=== PATIENT | female | born 1955 | race Caucasian/White ===

== ENCOUNTER 2022-01-24 10:07 | Day surgery (SDC) | payer OTHER, BC ==
[2022-01-19 11:28] LABS: Absolute Lymphocytes (CBC) 2.1 K/uL (0.7-4.9); Hematocrit 40.6 % (36.0-45.0); Lymphocytes % 32.7 % (15.3-44.8); MPV 8.2 fL (7.6-11.3); RBC Red Blood Cell Count 4.47 M/uL (3.86-4.86)
[2022-01-19 11:38] LABS: Potassium 3.6 mmol/L (3.5-5.1)
--- NOTE | 2022-01-23 08:31 | EKG ---
Test Date: 2022-01-19 Test Time: 10:00:37 Hand Worker: KRISTEL MEASUREMENT RESULTS: Intervals: Rate: 74 SC: 164 QRSD: 118 QT: 418 QTc: 463 Ava: P: 60 SC: 164 QRS: 58 T: 20 INTERPRETIVE STATEMENTS: Normal sinus rhythm Low voltage QRS Right bundle branch block Abnormal ECG Compared to ECG 03/30/2006 13:19:56 Low QRS voltage now present Right bundle-branch block now present Right-axis deviation no longer present Electronically Signed On 01-23-22 08:23:45 CDT by Humberto Cota
[~2022-01-24 10:07] MED LIST: CEFAZOLIN 1 GM in NA CHLORIDE 0.9% 50 ML IVPB SCH
[2022-01-24] MEDS ORDERED: Ringers Lactate 1,000 ML IV ONE ×2 (10:30→15:23)
[2022-01-24] MEDS ORDERED: CEFAZOLIN SODIUM 1 GM/VIAL ONE (10:30)
[2022-01-24] MEDS ORDERED: NA CHLORIDE 0.9% 50 ML ONE (10:30)
[2022-01-24] MEDS ORDERED: FENTANYL CITR 100 MCG/2 ML ONE (10:42)
[2022-01-24] MEDS ORDERED: dexAMETHasone 10 MG/ML VIAL ONE ×2 (10:42→12:58)
[2022-01-24] MEDS ORDERED: LIDOCAINE 1% MPF 5 ML VIAL ONE (10:42)
[2022-01-24] MEDS ORDERED: ROPLVACAINE HCL 40 ML ONE (10:43)
[2022-01-24] MEDS ORDERED: MIDAZOLAM HCL 2 MG/2 ML INJ ONE (10:43)
[2022-01-24] MEDS ORDERED: KETOROLAC 30 MG/ML INJ ONE (12:58)
[2022-01-24] MEDS ORDERED: propofoL 200 MG/20 ML VIAL IV ONE (12:58)
[2022-01-24] MEDS ORDERED: LIDOCAINE 2% MPF 5 ML VIAL ONE (12:58)
[2022-01-24] MEDS ORDERED: ONDANSETRON 4 MG/2 ML VIAL ONE ×2 (12:59→16:20)
[2022-01-24] MEDS ORDERED: ROCURONIUM 50 MG/5 ML VIAL IV ONE (13:03)
[2022-01-24] MEDS ORDERED: EPINEPHRINE/PF 1 MG/ML AMP ONE (13:34)
[2022-01-24] MEDS ORDERED: Phenylephrine HCl 10 MG/ML 1 ML VIAL ONE (14:19)
[2022-01-24] MEDS ORDERED: NEOSTIGMINE 1 MG/ML -5 ML ONE (15:53)
[2022-01-24] MEDS ORDERED: GLYCOPYRROLATE 0.2 MG/ML SYR ONE (15:59)
[2022-01-24] MEDS ORDERED: HYDROMORPHONE HCL 1 MG/ML INJ ONE (16:47)
[2022-01-24 18:36] VITALS: BP 129/54; TEMP 97.6; O2SAT 96
--- NOTE | 2022-01-25 10:19 | OP ---
Date of Procedure: 01/24/2022 Surgeon: Demond Tripathi MD Preoperative Diagnosis: Right very large retracted rotator cuff tear. Postoperative Diagnosis: Right very large retracted rotator cuff tear with fraying of the biceps anc hor. Procedure: 1.Right arthroscopic debridement including the base of the biceps anchor as well as some synovial ti ssue. 2.Mini open subacromial decompression with repair of large rotator cuff tear, which is chronic. Estimated Blood Loss: 20 cc. Complications: No complications. Pathology Specimens: No pathology specimen sent. Indications For Operation: Ms. Day is a 66-year-old female, who unfortunately has had significant problems related to her shoulder. This was initially treated with injections as well as other conse rvative measures. Unfortunately, she failed to improve. MRI demonstrates a very large retracted rot ator cuff tear. Risks, benefits, and alternatives of different methods of treatments have been discu ssed with the patient. She states she understands things as presented. At this time, we will attemp t repair and she agrees to proceed. Description Of Procedure: The patient was taken to the operating room and placed in supine position. General anesthesia was obtained by the staff. Following this, she was then placed in the beach aleyda ir position. Right upper extremity was then prepped and draped in usual sterile fashion for arthrosc opy. Arthroscopic camera was then placed within the shoulder, found to have a very large rotator cuf f tear as well as fraying of the undersurface as well as fraying of the biceps anchor. An additional anterior portal was then made and the 3.5 shaver was then used to debride back any frayed or obvious ly unstable material. After this, the arthroscopic posterior portal was then stapled shut. The arm was then re-prepped and all gloves and equipment were changed. A standard anterior incision was then taken down carefully through skin and soft tissues. Meticulous hemostasis being maintained using [employer] electrocautery. There was significant amount of adipose tissue. The acromioclavicular joint was palpated and the deltoid was then removed from the anterior leading edge of the acromion. After thi s, a was used to protect the underlying structures and an anterior as well as standard sub acromial decompression was then performed using a saw as well as a rasp. This allowed for visualizat ion of the humeral head, which was nearly completely uncovered quite striking and the significant rot ator cuff tear. This appeared to proceed very far posteriorly and was retracted quite a bit. Use of the finger as well as other techniques to free the rotator cuff did allow for mobilization of the cu ff. Combination of mobilization of the cuff as well as placement of the suture anchors, four of whic h were used in a slightly more superior position to allow for fairly good coverage of the humeral hea d, however, far posteriorly, there did appear to be still some that is uncovered. Following this, th e wound was irrigated and the deltoid was repaired back to the acromion via bone tunnels followed by oversewn with Vicryl. The wound was again irrigated and skin was closed using Vicryl followed by sta ples. The patient was then placed in Aquacel dressing as well as a shoulder immobilizer, awakened, a nd taken to recovery room. /BRANDT Voice ID: [id number] Report ID: [id number]
== END 2022-01-24 18:09 | disposition home or self-care (01) ==
LOC: OR 10:07
PROVIDERS: ATTEND Orthopaedic Surgery
PROC: 0RNJ4ZZ Release Right Shoulder Joint, Percutaneous Endoscopic Approach (ICD-10-PCS; 2022-01-24)
PROC: 0LM14ZZ Reattachment of Right Shoulder Tendon, Percutaneous Endoscopic Approach (ICD-10-PCS; principal; 2022-01-24 12:00)
DX: M75.121 Complete rotator cuff tear or rupture of right shoulder, not specified as traumatic (principal); Z88.6 Allergy status to analgesic agent; Z20.822 Contact with and (suspected) exposure to COVID-19
CPT/HCPCS: 93005; 85025; 80048; 36415; 29827; 29826; U0002; J2704; J0171; J2370; J2250; J3010; J1100 ×2; J2795; J1170; J2710; J7120 ×2; J2405 ×2; J0690

== ENCOUNTER 2022-11-07 05:39 | Observation (INO) | payer OTHER, BC ==
[2022-11-02 08:47] LABS: Absolute Lymphocytes (CBC) 2.1 K/uL (0.7-4.9); Hematocrit 42.1 % (36.0-45.0); Lymphocytes % 32.6 % (15.3-44.8); MCV 90.1 fL (80-100); MPV 8.2 fL (7.6-11.3); RBC Red Blood Cell Count 4.68 M/uL (3.86-4.86)
--- NOTE | 2022-11-02 08:51 | RAD REPORT ---
EXAM DESCRIPTION: RAD - Chest Pa And Lat (2 Views) - 11/02/2022 8:37 am CLINICAL HISTORY: Pre op pending knee replacement COMPARISON: No comparisons FINDINGS: Lines: None. Lungs: No evidence of edema or pneumonia. Pleural: No significant pleural effusions or pneumothorax. Cardiac: The heart size is within normal limits. Mediastinum: Within normal limits. Bones: No acute fractures. Other: None IMPRESSION: No acute cardiopulmonary disease.
[2022-11-02 08:52] LABS: Protime INR 0.98
[2022-11-02 08:52] LABS: Specific Gravity 1.011 (1.005-1.030); Urine Bacteria <20 /HPF (<20); Urine Bilirubin NEGATIVE (Negative); Urine Blood 1+ (Negative); Urine Clarity Clear (Clear); Urine Color Light-Yellow (Yellow); Urine Glucose NEGATIVE (Negative); Urine Mucus 1+ /HPF (None Seen); Urine Protein TRACE (Negative); Urine Urobilinogen Normal (Normal); Urine pH 6.5 (5.0-7.0)
[2022-11-02 08:56] LABS: SARS-CoV-2 Antigen Rapid Res Negative (Negative)
[2022-11-02 09:03] LABS: Albumin 3.5 g/dL (3.4-5.0); Bilirubin Total 0.4 mg/dL (0.2-1.0); Potassium 3.9 mmol/L (3.5-5.1); Protein, Total 7.1 g/dL (6.4-8.2)
--- NOTE | 2022-11-02 17:42 | EKG ---
Test Date: 2022-11-02 Test Time: 08:23:25 Physician Credentialing Specialist: CHELSI MEASUREMENT RESULTS: Intervals: Rate: 92 NJ: 164 QRSD: 112 QT: 396 QTc: 489 [place]: P: 73 NJ: 164 QRS: 84 T: 56 INTERPRETIVE STATEMENTS: Normal sinus rhythm Low voltage QRS Incomplete right bundle branch block Borderline ECG Compared to ECG 01/19/2022 10:00:37 Incomplete right bundle-branch block now present Right bundle-branch block no longer present Electronically Signed On 11-02-22 17:41:34 LINE AND FRAME POLER by Clarence Baird
[2022-11-07] MEDS ORDERED: CEFAZOLIN SODIUM 2 GM/VIAL ONE (06:03)
[2022-11-07] MEDS ORDERED: CELECOXIB 100 MG CAPSULE ONE (06:03)
[2022-11-07] MEDS ORDERED: GABAPENTIN 100 MG CAP ONE (06:04)
[2022-11-07] MEDS ORDERED: Oxycodone HCl/Acetaminophen 1 TAB TAB ONE (06:04)
[2022-11-07] MEDS ORDERED: ACETAMINOPHEN 500 MG TAB ONE (06:05)
[2022-11-07] MEDS ORDERED: Ringers Lactate 1,000 ML IV ONE ×2 (06:05→08:37)
[2022-11-07] MEDS ORDERED: BUPIVACAINE 0.75% (PF) 2 ML SP ONE (06:26)
[2022-11-07] MEDS ORDERED: MORPHINE SULFATE/PF 1 MG/ML (10 ML AMP) ONE (06:26)
[2022-11-07] MEDS ORDERED: BUPIVACAINE 0.25% PF 10 ML VIAL ONE (06:31)
[2022-11-07] MEDS ORDERED: LIDOCAINE 2% MPF 5 ML VIAL ONE ×2 (06:31→07:16)
[2022-11-07] MEDS ORDERED: dexAMETHasone 4 MG/ML VIAL ONE (06:32)
[2022-11-07] MEDS ORDERED: FENTANYL CITR 100 MCG/2 ML ONE ×2 (06:39→08:00)
[2022-11-07] MEDS ORDERED: MIDAZOLAM HCL 2 MG/2 ML INJ ONE (06:40)
[2022-11-07] MEDS ORDERED: HYDROMORPHONE HCL 1 MG/ML INJ ONE (07:13)
[2022-11-07] MEDS ORDERED: propofoL 200 MG/20 ML VIAL IV ONE (07:16)
[2022-11-07] MEDS ORDERED: ONDANSETRON 4 MG/2 ML VIAL ONE (07:32)
[2022-11-07] MEDS ORDERED: EPHEDRINE SULF 50 MG/ML VIAL ONE (07:38)
[2022-11-07] MEDS: TRANEXAMIC ACID 1,000 MG/10 ML VIAL IV ONE ×2 (07:40→09:15)
[2022-11-07] MEDS ORDERED: KETOROLAC 30 MG/ML INJ ONE (09:22)
[2022-11-07] MEDS ORDERED: DOCUSATE NA 100 MG CAP PO PRN (09:40)
[2022-11-07] MEDS ORDERED: HYDROCODONE/APAP 7.5/325 MG TAB PO PRN (09:40)
[2022-11-07] MEDS ORDERED: ONDANSETRON 4 MG/2 ML VIAL IV PRN (09:40)
--- OUTSIDE RECORDS SUMMARY | 2022-11-07 10:39 | XMS REPORT | Continuity of Care Document ---
:1955 Author Organization [facility] t Address [address] [place] [address] Care Team Providers Name Role Phone Andrei Weinberg Attending Clinician Unavailable Payers Payer Name Policy Type Policy Number Effective Date Expiration Date [facility] Blue Cross Blue 6 [id number] 2021 [facility] Shield of [place] 00:00:00 [facility] HUMANA MEDICARE 53 [id number] 2020 2021 [facility] jahaira 00:00:00 00:00:00 [facility] MEDICARE MB [id number] 2020 [facility] NOVITAS 00:00:00 [facility] Problems Condition Condition Condition Status Onset Resolution Last Treating Co mments Source Name Details Category Date Date Treatment Clinician Date [id number] Pain, Problem Commo n [id number] joint, [facility] shoulder, - [facility] right [facility] [id number] [place] [address] osteoarthr [facility] itis of - [facility] right knee [facility] [id number] Tear of Problem Commo n right [facility] rotator - [facility] cuff[facility] unspecifie d whether traumatic [id number] Arthritis Problem Co mmon [id number] of knee, [facility] right - [facility] Arthritis Arthritis Problem Com mon of left of knee, [facility] knee left - [facility] [id number] [place], [place] [address] joint, [facility] knee, - [facility] right [facility] [id number] Pain in Problem Comm on left knee [facility] [id number] [place] [address] osteoarthr [facility] itis of - [facility] left knee [facility] [id number] Sprain of Problem Co mmon 04 right [facility] rotator - [facility] cuff [facility] [id number] Status Problem Common post right [facility] rotator - [facility] cuff [facility] [id number] Body mass Problem Com mon index [facility] [BMI] - [facility] 38.0-38.9, [facility] [id number] GERD Problem Common without [facility] esophagiti - [facility] s [facility] [id number] Sleep Problem Common apnea in [facility] adult [facility] [id number] Primary Problem Commo n osteoarthr [facility] itis - [facility] involving [facility] [id number] Hypothyroi Problem Co mmon dism [facility] (acquired) [facility] [id number] Other Problem Common obesity [facility] due to - [facility] excess [facility] [id number] Mixed Problem Common hyperlipid [facility] emia [facility] Allergies, Adverse Reactions, Alerts Allergy Allergy Status Severity Reaction(s) Onset Inactive Treating Comm ents Source Name Type Date Date Clinician 235 Drug Active Unknown Common allergy [facility] Social History Social Habit Start Date Stop Date Quantity Comments Source History of Tobacco Use Co mmon [facility] Sex Assigned At Com mon [facility] Smoking Status Start Date Stop Date Source Former Smoker 2022-10-25 00:00:00 2022-10-25 00:00:00 [facility] Medications Ordered Filled Start Stop Current Ordering Indication Dosage Frequency Signature Comments Components Source Medication Medication Date Date Medication? Clinician (SIG) Name Name Xarelto 10 Xarelto 10 2021-11 No 1{table QD Xarelto 10 MG MG 2-27 t} MG 00:00: 00 HYDROcodone HYDROcodone 2021-11 No 1{table HYDROcodon -Acetaminop -Acetaminop 2-27 t_as_ne e-Acetamin hen 7.5-325 hen 7.5-325 00:00: eded} ophen MG MG 00 7.5-325 MG Xarelto 10 Xarelto 10 2021-11 No 1{table QD Xarelto 10 MG MG 2-27 t} MG 00:00: 00 HYDROcodone HYDROcodone 2021-11 No 1{table HYDROcodon -Acetaminop -Acetaminop 2-27 t_as_ne e-Acetamin hen 7.5-325 hen 7.5-325 00:00: eded} ophen MG MG 00 7.5-325 MG HYDROcodone HYDROcodone No 1{table HYDROcodon -Acetaminop -Acetaminop 3-22 t_as_ne e-Acetamin hen 5-325 hen 5-325 00:00: eded} ophen MG MG 00 5-325 MG HYDROcodone HYDROcodone No 1{table HYDROcodon -Acetaminop -Acetaminop 3-22 t_as_ne e-Acetamin hen 5-325 hen 5-325 00:00: eded} ophen MG MG 00 5-325 MG HYDROcodone HYDROcodone No 1{table HYDROcodon -Acetaminop -Acetaminop 3-22 t_as_ne e-Acetamin hen 5-325 hen 5-325 00:00: eded} ophen MG MG 00 5-325 MG HYDROcodone HYDROcodone No 1{table HYDROcodon -Acetaminop -Acetaminop 3-22 t_as_ne e-Acetamin hen 5-325 hen 5-325 00:00: eded} ophen MG MG 00 5-325 MG HYDROcodone HYDROcodone No 1{table HYDROcodon -Acetaminop -Acetaminop 3-22 t_as_ne e-Acetamin hen 5-325 hen 5-325 00:00: eded} ophen MG MG 00 5-325 MG HYDROcodone HYDROcodone 2021- No 1{table HYDROcodon -Acetaminop -Acetaminop 3-22 t_as_ne e-Acetamin hen 5-325 hen 5-325 00:00: eded} ophen MG MG 00 5-325 MG HYDROcodone HYDROcodone 2022-0 No 1{table HYDROcodon -Acetaminop -Acetaminop 3-22 t_as_ne e-Acetamin hen 5-325 hen 5-325 00:00: eded} ophen MG MG 00 5-325 MG HYDROcodone HYDROcodone 2021-0 No 1{table HYDROcodon -Acetaminop -Acetaminop 3-22 t_as_ne e-Acetamin hen 5-325 hen 5-325 00:00: eded} ophen MG MG 00 5-325 MG HYDROcodone HYDROcodone 2021-0 No 1{table HYDROcodon -Acetaminop -Acetaminop 3-22 t_as_ne e-Acetamin hen 5-325 hen 5-325 00:00: eded} ophen MG MG 00 5-325 MG HYDROcodone HYDROcodone 2021-0 No 1{table HYDROcodon -Acetaminop -Acetaminop 3-22 t_as_ne e-Acetamin hen 5-325 hen 5-325 00:00: eded} ophen MG MG 00 5-325 MG HYDROcodone HYDROcodone 2021-0 No 1{table HYDROcodon -Acetaminop -Acetaminop 3-22 t_as_ne e-Acetamin hen 5-325 hen 5-325 00:00: eded} ophen MG MG 00 5-325 MG HYDROcodone HYDROcodone 2021-0 No 1{table HYDROcodon -Acetaminop -Acetaminop 3-22 t_as_ne e-Acetamin hen 5-325 hen 5-325 00:00: eded} ophen MG MG 00 5-325 MG HYDROcodone HYDROcodone 2021-0 No 1{table HYDROcodon -Acetaminop -Acetaminop 3-22 t_as_ne e-Acetamin hen 5-325 hen 5-325 00:00: eded} ophen MG MG 00 5-325 MG HYDROcodone HYDROcodone 2021-0 No 1{table HYDROcodon -Acetaminop -Acetaminop 3-22 t_as_ne e-Acetamin hen 5-325 hen 5-325 00:00: eded} ophen MG MG 00 5-325 MG HYDROcodone HYDROcodone 2021-0 No 1{table HYDROcodon -Acetaminop -Acetaminop 3-22 t_as_ne e-Acetamin hen 5-325 hen 5-325 00:00: eded} ophen MG MG 00 5-325 MG [facility] 2021-0 No 30mg Com 11-30 [facility] 00:00: - [facility] 2021-0 No 30mg Com 11-30 [facility] 00:00: - [facility] 2021-0 No 30mg Com 11-30 [facility] 00:00: - [facility] 2021-0 No 30mg Com 11-30 [facility] 00:00: - [facility] 2021-0 No 30mg Com 11-30 [facility] 00:00: - [facility] 2021-0 No 30mg Com 11-30 [facility] 00:00: - [facility] 2021-0 No 30mg Com 11-30 [facility] 00:00: - [facility] 2021-0 No 30mg Com 11-30 [facility] 00:00: - [facility] 2021-0 No 30mg Com 11-30 [facility] 00:00: - [facility] 2021-0 No 30mg Com 11-30 [facility] 00:00: - [facility] 2021-0 No 30mg Com 11-30 [facility] 00:00: - [facility] 2021-0 No 30mg Com 11-30 [facility] 00:00: - [facility] 2021-0 No 30mg Com 11-30 [facility] 00:00: - [facility] 2021-0 No 30mg Com 11-30 [facility] 00:00: - [facility] 2021-0 No 30mg Com 11-30 [facility] 00:00: - [facility] 2021-0 No 30mg Com 11-30 [facility] 00:00: - [facility] 2021-0 No 30mg Com 11-30 [facility] 00:00: - [facility] 2021-0 No 30mg Com 11-23 [facility] 00:00: - [facility] 2021-0 No 30mg Com 11-23 [facility] 00:00: - [facility] 2021-0 No 30mg Com 11-23 [facility] 00:00: - [facility] 2021-0 No 30mg Com 11-23 [facility] 00:00: - [facility] 2021-0 No 30mg Com 11-23 [facility] 00:00: - [facility] 2021-0 No 30mg Com 11-23 [facility] 00:00: - [facility] 2021-0 No 30mg Com 11-23 [facility] 00:00: - [facility] 2021-0 No 30mg Com 11-23 [facility] 00:00: - [facility] 2021-0 No 30mg Com 11-23 [facility] 00:00: - [facility] 2021-0 No 30mg Com 11-23 [facility] 00:00: - [facility] 2021-0 No 30mg Com 11-23 [facility] 00:00: - [facility] 2021-0 No 30mg Com 11-23 [facility] 00:00: - [facility] 2021-0 No 30mg Com 11-23 [facility] 00:00: - [facility] 2021-0 No 30mg Com 11-23 [facility] 00:00: - [facility] 2021-0 No 30mg Com 11-23 [facility] 00:00: - [facility] 2-0 No 30mg Com 11-23 [facility] 00:00: - [facility] 2021-0 No 30mg Com 11-23 [facility] 00:00: - [facility] 2-0 No 30mg Com 11-16 [facility] 00:00: - [facility] 2021-0 No 30mg Com 11-16 [facility] 00:00: - [facility] 2021-0 No 30mg Com 11-16 [facility] 00:00: - [facility] 2021-0 No 30mg Com 11-16 [facility] 00:00: - [facility] 2021-0 No 30mg Com 11-16 [facility] 00:00: - [facility] 2021-0 No 30mg Com 11-16 [facility] 00:00: - [facility] 2-0 No 30mg Com 11-16 [facility] 00:00: - [facility] 2021-0 No 30mg Com 11-16 [facility] 00:00: - [facility] 2-0 No 30mg Com 11-16 [facility] 00:00: - [facility] 2021-0 No 30mg Com 11-16 [facility] 00:00: - [facility] 2-0 No 30mg Com 11-16 [facility] 00:00: - [facility] 2021-0 No 30mg Com 11-16 [facility] 00:00: - [facility] 2021-0 No 30mg Com 11-16 [facility] 00:00: - [facility] 2021-0 No 30mg Com 11-16 [facility] 00:00: - [facility] No 30mg Com 11-16 [facility] 00:00: - [facility] No 30mg Com 11-16 [facility] 00:00: - [facility] No 30mg Com 11-16 [facility] 00:00: - [facility] 2020-11 No 30mg Com 12-28 [facility] 00:00: - [facility] 2020-11 No 30mg Com 12-28 [facility] 00:00: - [facility] 2020-11 No 30mg Com 12-28 [facility] 00:00: - [facility] 2020-11 No 30mg Com 12-28 [facility] 00:00: - [facility] 2020-11 No 30mg Com 12-28 [facility] 00:00: - [facility] 2020-11 No 30mg Com 12-28 [facility] 00:00: - [facility] 2020-11 No 30mg Com 12-28 [facility] 00:00: - [facility] 2020-11 No 30mg Com 12-28 [facility] 00:00: - [facility] 2020-11 No 30mg Com 12-28 [facility] 00:00: - [facility] 2020-11 No 30mg Com 12-28 [facility] 00:00: - [facility] 2020-11 No 30mg Com 12-28 [facility] 00:00: - [facility] 2020-11 No 30mg Com 12-28 [facility] 00:00: - [facility] 2020-11 No 30mg Com 12-28 [facility] 00:00: - [facility] 2020-11 No 30mg Com 12-28 [facility] 00:00: - [facility] 2020-11 No 30mg Com 12-28 [facility] 00:00: - [facility] 2020-11 No 30mg Com 12-28 [facility] 00:00: - [facility] 2020-11 No 30mg Com 12-28 [facility] 00:00: - [facility] 2020-11 No 30mg Com 12-21 [facility] 00:00: - [facility] 2020-11 No 30mg Com 12-21 [facility] 00:00: - [facility] 2020-11 No 30mg Com 12-21 [facility] 00:00: - [facility] 2020-11 No 30mg Com 12-21 [facility] 00:00: - [facility] 2020-11 No 30mg Com 12-21 [facility] 00:00: - [facility] 2020-11 No 30mg Com 12-21 [facility] 00:00: - [facility] 2020-11 No 30mg Com 12-21 [facility] 00:00: - [facility] 2020-11 No 30mg Com 12-21 [facility] 00:00: - [facility] 2020-11 No 30mg Com 12-21 [facility] 00:00: - [facility] 2020-11 No 30mg Com 12-21 [facility] 00:00: - [facility] 2020-11 No 30mg Com 12-21 [facility] 00:00: - [facility] 2020-11 No 30mg Com 12-21 [facility] 00:00: - [facility] 2020-11 No 30mg Com 12-21 [facility] 00:00: - [facility] 2020-11 No 30mg Com 12-21 [facility] 00:00: - [facility] 2020-11 No 30mg Com 12-21 [facility] 00:00: - [facility] 2020- No 30mg Com 12-21 [facility] 00:00: - [facility] 2020-11 No 30mg Com 12-21 [facility] 00:00: - [facility] 2020-11 No 2mL Com 12-14 [facility] 00:00: - [facility] 2020-11 No 2mL Com 12-14 [facility] 00:00: - [facility] 2020-11 No 2mL Com 12-14 [facility] 00:00: - [facility] 2020-11 No 2mL Com 12-14 [facility] 00:00: - [facility] 2020-11 No 2mL Com 12-14 [facility] 00:00: - [facility] 2020-11 No 2mL Com 12-14 [facility] 00:00: - [facility] 2020- No 2mL Com 12-14 [facility] 00:00: - [facility] 2020- No 2mL Com 12-14 [facility] 00:00: - [facility] 2020- No 2mL Com 12-14 [facility] 00:00: - [facility] 2020- No 2mL Com 12-14 [facility] 00:00: - [facility] 2020- No 2mL Com 12-14 [facility] 00:00: - [facility] 2020-1 No 2mL Com 12-14 [facility] 00:00: - [facility] 2020-11 No 2mL Com 12-14 [facility] 00:00: - [facility] 2020- No 2mL Com 12-14 [facility] 00:00: - [facility] 2020-11 No 2mL Com 12-14 [facility] 00:00: - [facility] 2020- No 2mL Com 12-14 [facility] 00:00: - [facility] 2020-11 No 2mL Com 12-14 [facility] 00:00: - [facility] 00 [facility] Levothyroxi Levothyroxi No QD Levothyrox ne Sodium ne Sodium ine Sodium 50 MCG 50 MCG 50 MCG Levothyroxi Levothyroxi No QD Levothyrox ne Sodium ne Sodium ine Sodium 50 MCG 50 MCG 50 MCG Levothyroxi Levothyroxi No QD ne Sodium ne Sodium 50 MCG 50 MCG Levothyroxi Levothyroxi No QD ne Sodium ne Sodium 50 MCG 50 MCG Levothyroxi Levothyroxi No QD Levothyrox ne Sodium ne Sodium ine Sodium 50 MCG 50 MCG 50 MCG Levothyroxi Levothyroxi No QD Levothyrox ne Sodium ne Sodium ine Sodium 50 MCG 50 MCG 50 MCG Levothyroxi Levothyroxi No QD Levothyrox ne Sodium ne Sodium ine Sodium 50 MCG 50 MCG 50 MCG Levothyroxi Levothyroxi No QD Levothyrox ne Sodium ne Sodium ine Sodium 50 MCG 50 MCG 50 MCG Levothyroxi Levothyroxi No QD Levothyrox ne Sodium ne Sodium ine Sodium 50 MCG 50 MCG 50 MCG Levothyroxi Levothyroxi No QD Levothyrox ne Sodium ne Sodium ine Sodium 50 MCG 50 MCG 50 MCG Levothyroxi Levothyroxi No QD Levothyrox ne Sodium ne Sodium ine Sodium 50 MCG 50 MCG 50 MCG Levothyroxi Levothyroxi No QD Levothyrox ne Sodium ne Sodium ine Sodium 50 MCG 50 MCG 50 MCG Levothyroxi Levothyroxi No QD Levothyrox ne Sodium ne Sodium ine Sodium 50 MCG 50 MCG 50 MCG Levothyroxi Levothyroxi No QD Levothyrox ne Sodium ne Sodium ine Sodium 50 MCG 50 MCG 50 MCG Levothyroxi Levothyroxi No QD Levothyrox ne Sodium ne Sodium ine Sodium 50 MCG 50 MCG 50 MCG Levothyroxi Levothyroxi No QD Levothyrox ne Sodium ne Sodium ine Sodium 50 MCG 50 MCG 50 MCG Levothyroxi Levothyroxi No QD Levothyrox ne Sodium ne Sodium ine Sodium 50 MCG 50 MCG 50 MCG Levothyroxi Levothyroxi No QD Levothyrox ne Sodium ne Sodium ine Sodium 50 MCG 50 MCG 50 MCG Levothyroxi Levothyroxi No QD Levothyrox ne Sodium ne Sodium ine Sodium 50 MCG 50 MCG 50 MCG Levothyroxi Levothyroxi No QD Levothyrox ne Sodium ne Sodium ine Sodium 50 MCG 50 MCG 50 MCG Levothyroxi Levothyroxi No QD Levothyrox ne Sodium ne Sodium ine Sodium 50 MCG 50 MCG 50 MCG Levothyroxi Levothyroxi No QD Levothyrox ne Sodium ne Sodium ine Sodium 50 MCG 50 MCG 50 MCG Levothyroxi Levothyroxi No Levothyrox ne Sodium ne Sodium ine Sodium 50 MCG 50 MCG 50 MCG Levothyroxi Levothyroxi No Levothyrox ne Sodium ne Sodium ine Sodium 50 MCG 50 MCG 50 MCG Levothyroxi Levothyroxi No Levothyrox ne Sodium ne Sodium ine Sodium 50 MCG 50 MCG 50 MCG Levothyroxi Levothyroxi No Levothyrox ne Sodium ne Sodium ine Sodium 50 MCG 50 MCG 50 MCG Levothyroxi Levothyroxi No Levothyrox ne Sodium ne Sodium ine Sodium 50 MCG 50 MCG 50 MCG Levothyroxi Levothyroxi No Levothyrox ne Sodium ne Sodium ine Sodium 50 MCG 50 MCG 50 MCG Immunizations Ordered Immunization Filled Immunization Date Status Commen ts Source Name Name Prevnar 13 (PCV13) Prevnar 13 (PCV13) 2020-08-18 Completed [facility] 11:46:00 - [facility] Prevnar 13 (PCV13) Prevnar 13 (PCV13) 2020-08-18 Completed [facility] 11:46:00 - [facility] Prevnar 13 (PCV13) Prevnar 13 (PCV13) 2020-08-18 Completed [facility] 11:46:00 - [facility] Prevnar 13 (PCV13) Prevnar 13 (PCV13) 2020-08-18 Completed [facility] 11:46:00 - [facility] Prevnar 13 (PCV13) Prevnar 13 (PCV13) 2020-08-18 Completed [facility] 11:46:00 - [facility] Prevnar 13 (PCV13) Prevnar 13 (PCV13) 2020-08-18 Completed [facility] 11:46:00 - [facility] Prevnar 13 (PCV13) Prevnar 13 (PCV13) 2020-08-18 Completed [facility] 11:46:00 - [facility] Prevnar 13 (PCV13) Prevnar 13 (PCV13) 2020-08-18 Completed [facility] 11:46:00 - [facility] Prevnar 13 (PCV13) Prevnar 13 (PCV13) 2020-08-18 Completed [facility] 11:46:00 - [facility] Prevnar 13 (PCV13) Prevnar 13 (PCV13) 2020-08-18 Completed [facility] 11:46:00 - [facility] Prevnar 13 (PCV13) Prevnar 13 (PCV13) 2020-08-18 Completed [facility] 11:46:00 - [facility] Prevnar 13 (PCV13) Prevnar 13 (PCV13) 2020-08-18 Completed [facility] 11:46:00 - [facility] Prevnar 13 (PCV13) Prevnar 13 (PCV13) 2020-08-18 Completed [facility] 11:46:00 - [facility] Prevnar 13 (PCV13) Prevnar 13 (PCV13) 2020-08-18 Completed [facility] 11:46:00 - [facility] Prevnar 13 (PCV13) Prevnar 13 (PCV13) 2020-08-18 Completed [facility] 11:46:00 - [facility] Prevnar 13 (PCV13) Prevnar 13 (PCV13) 2020-08-18 Completed [facility] 11:46:00 [facility] Prevnar 13 (PCV13) Prevnar 13 (PCV13) 2020-08-18 Completed [facility] 11:46:00 [facility] Prevnar 13 (PCV13) Prevnar 13 (PCV13) 2020-08-18 Completed [facility] 11:46:00 - [facility] Prevnar 13 (PCV13) Prevnar 13 (PCV13) 2020-08-18 Completed [facility] 11:46:00 - [facility] Prevnar 13 (PCV13) Prevnar 13 (PCV13) 2020-08-18 Completed [facility] 11:46:00 [facility] Prevnar 13 (PCV13) Prevnar 13 (PCV13) 2020-08-18 Completed [facility] 11:46:00 [facility] Prevnar 13 (PCV13) Prevnar 13 (PCV13) 2020-08-18 Completed [facility] 11:46:00 [facility] Prevnar 13 (PCV13) Prevnar 13 (PCV13) 2020-08-18 Completed [facility] 11:46:00 [facility] Prevnar 13 (PCV13) Prevnar 13 (PCV13) 2020-08-18 Completed [facility] 11:46:00 [facility] Prevnar 13 (PCV13) Prevnar 13 (PCV13) 2020-08-18 Completed [facility] 11:46:00 - [facility] Prevnar 13 (PCV13) Prevnar 13 (PCV13) 2020-08-18 Completed [facility] 11:46:00 - [facility] Prevnar 13 (PCV13) Prevnar 13 (PCV13) 2020-08-18 Completed [facility] 11:46:00 [facility] Prevnar 13 (PCV13) Prevnar 13 (PCV13) 2020-08-18 Completed [facility] 11:46:00 [facility] Pneumovax (PPSV23) Pneumovax (PPSV23) 2020-08-12 Completed [facility] 11:46:00 [facility] Pneumovax (PPSV23) Pneumovax (PPSV23) 2020-08-12 Completed [facility] 11:46:00 [facility] Pneumovax (PPSV23) Pneumovax (PPSV23) 2020-08-12 Completed [facility] 11:46:00 [facility] Pneumovax (PPSV23) Pneumovax (PPSV23) 2020-08-12 Completed [facility] 11:46:00 [facility] Pneumovax (PPSV23) Pneumovax (PPSV23) 2020-08-12 Completed [facility] 11:46:00 [facility] Pneumovax (PPSV23) Pneumovax (PPSV23) 2020-08-12 Completed [facility] 11:46:00 [facility] Pneumovax (PPSV23) Pneumovax (PPSV23) 2020-08-12 Completed [facility] 11:46:00 [facility] Pneumovax (PPSV23) Pneumovax (PPSV23) 2020-08-12 Completed [facility] 11:46:00 [facility] Pneumovax (PPSV23) Pneumovax (PPSV23) 2020-08-12 Completed [facility] 11:46:00 [facility] Pneumovax (PPSV23) Pneumovax (PPSV23) 2020-08-12 Completed [facility] 11:46:00 [facility] Pneumovax (PPSV23) Pneumovax (PPSV23) 2020-08-12 Completed [facility] 11:46:00 [facility] Pneumovax (PPSV23) Pneumovax (PPSV23) 2020-08-12 Completed [facility] 11:46:00 [facility] Pneumovax (PPSV23) Pneumovax (PPSV23) 2020-08-12 Completed [facility] 11:46:00 [facility] Pneumovax (PPSV23) Pneumovax (PPSV23) 2020-08-12 Completed [facility] 11:46:00 [facility] Pneumovax (PPSV23) Pneumovax (PPSV23) 2020-08-12 Completed [facility] 11:46:00 [facility] Pneumovax (PPSV23) Pneumovax (PPSV23) 2020-08-12 Completed [facility] 11:46:00 [facility] Pneumovax (PPSV23) Pneumovax (PPSV23) 2020-08-12 Completed [facility] 11:46:00 [facility] Pneumovax (PPSV23) Pneumovax (PPSV23) 2020-08-12 Completed [facility] 11:46:00 [facility] Pneumovax (PPSV23) Pneumovax (PPSV23) 2020-08-12 Completed [facility] 11:46:00 [facility] Pneumovax (PPSV23) Pneumovax (PPSV23) 2020-08-12 Completed [facility] 11:46:00 [facility] Pneumovax (PPSV23) Pneumovax (PPSV23) 2020-08-12 Completed [facility] 11:46:00 [facility] Pneumovax (PPSV23) Pneumovax (PPSV23) 2020-08-12 Completed [facility] 11:46:00 [facility] Pneumovax (PPSV23) Pneumovax (PPSV23) 2020-08-12 Completed [facility] 11:46:00 [facility] Pneumovax (PPSV23) Pneumovax (PPSV23) 2020-08-12 Completed [facility] 11:46:00 [facility] Pneumovax (PPSV23) Pneumovax (PPSV23) 2020-08-12 Completed [facility] 11:46:00 [facility] Pneumovax (PPSV23) Pneumovax (PPSV23) 2020-08-12 Completed [facility] 11:46:00 [facility] Pneumovax (PPSV23) Pneumovax (PPSV23) 2020-08-12 Completed [facility] 11:46:00 [facility] Pneumovax (PPSV23) Pneumovax (PPSV23) 2020-08-12 [facility]pleted [facility]:00 [facility] Adacel (Tdap) Adacel (Tdap) 2020-08-10 [facility]pleted [facility]00 [facility] Adacel (Tdap) Adacel (Tdap) 2020-08-10 Completed [facility]00 [facility] Adacel (Tdap) Adacel (Tdap) 2020-08-10 Completed [facility] 11:47[facility]00 [facility] Adacel (Tdap) Adacel (Tdap) 2020-08-10 Completed [facility]00 [facility] Adacel (Tdap) Adacel (Tdap) 2020-08-10 Completed [facility]:47[facility]00 [facility] Adacel (Tdap) Adacel (Tdap) 2020-08-10 Completed [facility] 11:47:00 - [facility] Adacel (Tdap) Adacel (Tdap) 2020-08-10 Completed [facility] 11:47:00 - [facility] Adacel (Tdap) Adacel (Tdap) 2020-08-10 Completed [facility] 11:47[facility]00 [facility] Adacel (Tdap) Adacel (Tdap) 2020-08-10 Completed [facility] 11:47:00 - [facility] Adacel (Tdap) Adacel (Tdap) 2020-08-10 Completed [facility]00 [facility] Adacel (Tdap) Adacel (Tdap) 2020-08-10 Completed [facility] 11:47:00 - [facility] Adacel (Tdap) Adacel (Tdap) 2020-08-10 Completed [facility] 11:47:00 - [facility] Adacel (Tdap) Adacel (Tdap) 2020-08-10 Completed [facility] 11:47:00 - [facility] Adacel (Tdap) Adacel (Tdap) 2020-08-10 Completed [facility]00 [facility] Adacel (Tdap) Adacel (Tdap) 2020-08-10 Completed [facility]:47[facility]00 [facility] Adacel (Tdap) Adacel (Tdap) 2020-08-10 Completed [facility]:47[facility]00 [facility] Adacel (Tdap) Adacel (Tdap) 2020-08-10 Completed [facility]:47[facility]00 [facility] Adacel (Tdap) Adacel (Tdap) 2020-08-10 Completed [facility]00 [facility] Adacel (Tdap) Adacel (Tdap) 2020-08-10 Completed [facility]:47[facility]00 [facility] Adacel (Tdap) Adacel (Tdap) 2020-08-10 Completed [facility] 11:47:00 - [facility] Adacel (Tdap) Adacel (Tdap) 2020-08-10 Completed [facility] 11:47:00 - [facility] Adacel (Tdap) Adacel (Tdap) 2020-08-10 Completed [facility] 11:47:00 - [facility] Adacel (Tdap) Adacel (Tdap) 2020-08-10 Completed [facility] 11:47:00 - [facility] Adacel (Tdap) Adacel (Tdap) 2020-08-10 Completed [facility] 11:47:00 - [facility] Adacel (Tdap) Adacel (Tdap) 2020-08-10 Completed [facility] 11:47:00 - [facility] Adacel (Tdap) Adacel (Tdap) 2020-08-10 Completed [facility] 11:47:00 - [facility] Adacel (Tdap) Adacel (Tdap) 2020-08-10 Completed [facility] 11:47:00 - [facility] Adacel (Tdap) Adacel (Tdap) 2020-08-10 Completed [facility] 11:47:00 - [facility] FluAD FluAD 2020-08-10 Completed [facility] 11:46:00 - [facility] FluAD FluAD 2020-08-10 Completed [facility] 11:46:00 - [facility] FluAD FluAD 2020-08-10 Completed [facility] 11:46:00 - [facility] FluAD FluAD 2020-08-10 Completed [facility] 11:46:00 [facility] FluAD FluAD 2020-08-10 Completed [facility] 11:46:00 - [facility] FluAD FluAD 2020-08-10 Completed [facility] 11:46:00 - [facility] FluAD FluAD 2020-08-10 Completed [facility] 11:46:00 - [facility] FluAD FluAD 2020-08-10 Completed [facility] 11:46:00 - [facility] FluAD FluAD 2020-08-10 Completed [facility] 11:46:00 - [facility] FluAD FluAD 2020-08-10 Completed [facility] 11:46:00 - [facility] FluAD FluAD 2020-08-10 Completed [facility] 11:46:00 - [facility] FluAD FluAD 2020-08-10 Completed [facility] 11:46:00 - [facility] FluAD FluAD 2020-08-10 Completed [facility] 11:46:00 - [facility] FluAD FluAD 2020-08-10 Completed [facility] 11:46:00 - [facility] FluAD FluAD 2020-08-10 Completed [facility] 11:46:00 - [facility] FluAD FluAD 2020-08-10 Completed [facility] 11:46:00 - [facility] FluAD FluAD 2020-08-10 Completed [facility] 11:46:00 - [facility] FluAD FluAD 2020-08-10 Completed [facility] 11:46:00 - [facility] FluAD FluAD 2020-08-10 Completed [facility] 11:46:00 - [facility] FluAD FluAD 2020-08-10 Completed [facility] 11:46:00 - [facility] FluAD FluAD 2020-08-10 Completed [facility] 11:46:00 - [facility] FluAD FluAD 2020-08-10 Completed [facility] 11:46:00 - [facility] FluAD FluAD 2020-08-10 Completed [facility] 11:46:00 - [facility] FluAD FluAD 2020-08-10 Completed [facility] 11:46:00 - [facility] FluAD FluAD 2020-08-10 Completed [facility] 11:46:00 - [facility] FluAD FluAD 2020-08-10 Completed [facility] 11:46:00 - [facility] FluAD FluAD 2020-08-10 Completed [facility] 11:46:00 - [facility] FluAD FluAD 2020-08-10 Completed [facility] 11:46:00 - [facility] Vital Signs Vital Name Observation Time Observation Value Comments Source height 2022-10-25 11:00:00 64 [in_i] [facility] weight 2022-10-25 11:00:00 230 [lb_av] [facility] temperature 2022-10-25 11:00:00 97.0 [degF] [facility] - [facility] bmi 2022-10-25 11:00:00 39.48 kg/m2 [facility] blood pressure 2022-10-25 11:00:00 132 mm[Hg] [facility] - systolic [facility] blood pressure 2022-10-25 11:00:00 80 mm[Hg] [facility] - diastolic [facility] height 2022-09-07 09:30:00 64 [in_i] [facility] weight 2022-09-07 09:30:00 230 [lb_av] [facility] temperature 2022-09-07 09:30:00 96.9 [degF] [facility] - [facility] bmi 2022-09-07 09:30:00 39.48 kg/m2 [facility] - [facility] blood pressure 2022-09-07 09:30:00 130 mm[Hg] [facility] - systolic [facility] blood pressure 2022-09-07 09:30:00 68 mm[Hg] [facility] - diastolic [facility] height 2022-07-26 09:45:00 64 [in_i] [facility] - [facility] weight 2022-07-26 09:45:00 229 [lb_av] [facility] - [facility] temperature 2022-07-26 09:45:00 97.2 [degF] [facility] - [facility] bmi 2022-07-26 09:45:00 39.3 kg/m2 [facility] blood pressure 2022-07-26 09:45:00 132 mm[Hg] [facility] - systolic [facility] blood pressure 2022-07-26 09:45:00 70 mm[Hg] [facility] - diastolic [facility] height 2022-05-11 13:50:00 64 [in_i] [facility] weight 2022-05-11 13:50:00 229.7 [lb_av] [facility] temperature 2022-05-11 13:50:00 98.2 [degF] [facility] bmi 2022-05-11 13:50:00 39.42 kg/m2 [facility] oximetry 2022-05-11 13:50:00 93 % [facility] respiratory rate 2022-05-11 13:50:00 16 /min [facility] blood pressure 2022-05-11 13:50:00 129 mm[Hg] [facility] - systolic [facility] blood pressure 2022-05-11 13:50:00 68 mm[Hg] [facility] - diastolic [facility] height 2022-05-11 14:00:00 64 [in_i] [facility] weight 2022-05-11 14:00:00 229.7 [lb_av] [facility] temperature 2022-05-11 14:00:00 98.2 [degF] [facility] bmi 2022-05-11 14:00:00 39.42 kg/m2 [facility] oximetry 2022-05-11 14:00:00 93 % [facility] respiratory rate 2022-05-11 14:00:00 16 /min [facility] blood pressure 2022-05-11 14:00:00 129 mm[Hg] [facility] - systolic [facility] blood pressure 2022-05-11 14:00:00 68 mm[Hg] [facility] - diastolic [facility] height 2022-04-26 09:00:00 64 [in_i] [facility] weight 2022-04-26 09:00:00 236 [lb_av] [facility] bmi 2022-04-26 09:00:00 40.5 kg/m2 [facility] blood pressure 2022-04-26 09:00:00 132 mm[Hg] [facility] - systolic [facility] blood pressure 2022-04-26 09:00:00 79 mm[Hg] [facility] - diastolic [facility] height 2022-03-08 09:30:00 64 [in_i] [facility] weight 2022-03-08 09:30:00 237 [lb_av] [facility] - [facility] bmi 2022-03-08 09:30:00 40.68 kg/m2 [facility] blood pressure 2022-03-08 09:30:00 130 mm[Hg] [facility] - systolic [facility] blood pressure 2022-03-08 09:30:00 78 mm[Hg] [facility] - diastolic [facility] height 2022-02-22 10:00:00 64 [in_i] [facility] weight 2022-02-22 10:00:00 237 [lb_av] [facility] - [facility] bmi 2022-02-22 10:00:00 40.68 kg/m2 [facility] - [facility] blood pressure 2022-02-22 10:00:00 130 mm[Hg] [facility] - systolic [facility] blood pressure 2022-02-22 10:00:00 78 mm[Hg] [facility] - diastolic [facility] height 2022-02-08 09:00:00 64 [in_i] [facility] weight 2022-02-08 09:00:00 237 [lb_av] [facility] - [facility] bmi 2022-02-08 09:00:00 40.68 kg/m2 [facility] blood pressure 2022-02-08 09:00:00 130 mm[Hg] [facility] - systolic [facility] blood pressure 2022-02-08 09:00:00 80 mm[Hg] [facility] - diastolic [facility] height 2022-01-26 11:00:00 64 [in_i] [facility] weight 2022-01-26 11:00:00 237 [lb_av] [facility] - [facility] bmi 2022-01-26 11:00:00 40.68 kg/m2 [facility] blood pressure 2022-01-26 11:00:00 130 mm[Hg] [facility] - systolic [facility] blood pressure 2022-01-26 11:00:00 80 mm[Hg] [facility] - diastolic [facility] height 2021-12-30 08:45:00 64 [in_i] [facility] weight 2021-12-30 08:45:00 237 [lb_av] [facility] bmi 2021-12-30 08:45:00 40.68 kg/m2 [facility] - [facility] blood pressure 2021-12-30 08:45:00 132 mm[Hg] [facility] - systolic [facility] blood pressure 2021-12-30 08:45:00 78 mm[Hg] [facility] - diastolic [facility] height 2021-11-30 10:40:00 64 [in_i] [facility] weight 2021-11-30 10:40:00 237 [lb_av] [facility] - [facility] bmi 2021-11-30 10:40:00 40.68 kg/m2 [facility] - [facility] blood pressure 2021-11-30 10:40:00 130 mm[Hg] [facility] - systolic [facility] blood pressure 2021-11-30 10:40:00 80 mm[Hg] [facility] - diastolic [facility] height 2021-11-23 10:00:00 64 [in_i] [facility] - [facility] weight 2021-11-23 10:00:00 237 [lb_av] [facility] - [facility] bmi 2021-11-23 10:00:00 40.68 kg/m2 [facility] blood pressure 2021-11-23 10:00:00 132 mm[Hg] [facility] - systolic [facility] blood pressure 2021-11-23 10:00:00 82 mm[Hg] [facility] - diastolic [facility] height 2021-11-16 14:45:00 64 [in_i] [facility] weight 2021-11-16 14:45:00 236 [lb_av] [facility] bmi 2021-11-16 14:45:00 40.5 kg/m2 [facility] blood pressure 2021-11-16 14:45:00 130 mm[Hg] [facility] - systolic [facility] blood pressure 2021-11-16 14:45:00 80 mm[Hg] [facility] - diastolic [facility] height 2021-11-14 09:45:00 64 [in_i] [facility] - [facility] weight 2021-11-14 09:45:00 236 [lb_av] [facility] - [facility] bmi 2021-11-14 09:45:00 40.5 kg/m2 [facility] blood pressure 2021-11-14 09:45:00 138 mm[Hg] [facility] - systolic [facility] blood pressure 2021-11-14 09:45:00 82 mm[Hg] [facility] - diastolic [facility] height 2021-10-27 09:30:00 64 [in_i] [facility] weight 2021-10-27 09:30:00 235 [lb_av] [facility] - [facility] bmi 2021-10-27 09:30:00 40.33 kg/m2 [facility] blood pressure 2021-10-27 09:30:00 136 mm[Hg] [facility] - systolic [facility] blood pressure 2021-10-27 09:30:00 80 mm[Hg] [facility] - diastolic [facility] height 2021-10-20 15:50:00 64 [in_i] [facility] weight 2021-10-20 15:50:00 233 [lb_av] [facility] - [facility] bmi 2021-10-20 15:50:00 39.99 kg/m2 [facility] blood pressure 2021-10-20 15:50:00 135 mm[Hg] [facility] - systolic [facility] blood pressure 2021-10-20 15:50:00 78 mm[Hg] [facility] - diastolic [facility] height 2021-10-13 09:00:00 64 [in_i] [facility] weight 2021-10-13 09:00:00 233.7 [lb_av] [facility] bmi 2021-10-13 09:00:00 40.11 kg/m2 [facility] - [facility] blood pressure 2021-10-13 09:00:00 135 mm[Hg] [facility] - systolic [facility] blood pressure 2021-10-13 09:00:00 94 mm[Hg] [facility] - diastolic [facility] Procedures This patient has no known procedures. Encounters Start End Encounter Admission Attending Care Care Encounter Source Date/Time Date/Time Type Type Clinicians Facility Department ID 2022-07-26 Outpatient Weinberg, STLMLC STLC [id number] [facility] 09:46:02 [facility] 2022-07-25 Outpatient Weinberg, STLMLC STLC [id number] Common 14:05:01 [facility] 2022-05-10 Outpatient Weinberg, STLMLC STLC [id number] Common 16:04:01 [facility] 2022-04-26 Outpatient Weinberg, STLMLC STLC [id number] Common 08:43:02 [facility] 2022-03-08 Outpatient Weinberg, STLMLC STLC [id number] Common 14:00:02 [facility] 2022-02-03 Outpatient Weinberg, STLMLC STLMLC [id number] Common 12:31:01 [facility] 2021-12-29 Outpatient Weinberg, STLMLC STLMLC [id number] Common 09:05:02 [facility] 2021-11-30 Outpatient Weinberg, STLMLC STLMLC [id number] Common 14:36:53 [facility] 2021-11-30 Outpatient Weinberg, STLMLC STLMLC [id number] Common 14:28:07 [facility] 2021-11-30 Outpatient Weinberg, STLMLC STLMLC [id number] Common 14:27:44 [facility] 2021-11-30 Outpatient Weinberg, STLMLC STLMLC [id number] Common 14:22:48 Andrei [id number] [facility] 2021-11-30 Outpatient Weinberg, STLMLC STLMLC [id number] Common 14:03:30 Andrei [id number] [facility] 2021-11-30 Outpatient Weinberg, STLMLC STLMLC [id number] Common 12:58:57 Andrei [id number] [facility] 2021-11-30 Outpatient Weinberg, STLMLC STLMLC [id number] Common 12:57:36 Andrei [id number] [facility] 2021-11-30 Outpatient STLMLC STLMLC [id number] Common 12:50:16 [id number] [facility] 2022-11-03 2022-11-03 (TEL) STLMLC STLMLC [id number] Co mmon 00:00:00 00:00:00 [facility] 2022-10-25 2022-10-25 OFFICE STLMLC STLMLC [id number] Co mmon 00:00:00 00:00:00 VISIT EST Spir it PT LEVEL 3 [facility] 2022-09-08 2022-09-08 (TEL) STLMLC STLMLC [id number] Co mmon 00:00:00 00:00:00 [facility] 2022-09-07 2022-09-07 OFFICE STLMLC STLMLC [id number] Co mmon 00:00:00 00:00:00 VISIT EST Spir it PT LEVEL 3 - [facility] 2022-07-26 2022-07-26 OFFICE STLMLC STLMLC [id number] Co mmon 00:00:00 00:00:00 VISIT EST Spir it PT LEVEL 3 - [facility] 2022-05-11 2022-05-11 OFFICE STLMLC STLMLC [id number] Co mmon 00:00:00 00:00:00 VISIT [facility] PT - CHI LEVEL 4 [facility] 2022-05-11 2022-05-11 SUB ANNUAL STLMLC STLMLC [id number] Common 00:00:00 00:00:[address] [facility] VISIT [facility] 2022-04-26 2022-04-26 NON-BILLAB STLMLC STLMLC [id number] Common 00:00:00 00:00:00 LE VISIT Spiri t [facility] 2022-03-08 2022-03-08 (TEL) STLMLC STLMLC [id number] Co mmon 00:00:00 00:00:00 [facility] 2022-03-08 2022-03-08 Postop STLMLC STLMLC [id number] Co mmon 00:00:00 00:00:00 visit [facility] 2022-02-22 2022-02-22 Postop STLMLC STLMLC [id number] Co mmon 00:00:00 00:00:00 visit [facility] 2022-02-08 2022-02-08 Postop STLMLC STLMLC [id number] Co mmon 00:00:00 00:00:00 visit [facility] 2022-01-26 2022-01-26 OFFICE STLMLC STLMLC [id number] Co mmon 00:00:00 00:00:00 VISIT [facility] Spir it PT LEVEL 3 - [facility] 2022-01-24 2022-01-24 (TEL) STLMLC STLMLC [id number] Co mmon 00:00:00 00:00:00 [facility] 2022-01-04 2022-01-04 (TEL) STLMLC STLMLC [id number] Co mmon 00:00:00 00:00:00 [facility] 2021-12-30 2021-12-30 OFFICE STLMLC STLMLC [id number] Co mmon 00:00:00 00:00:00 VISIT EST [facility] it PT LEVEL 3 - [facility] 2021-12-15 2021-12-15 (TEL) STLMLC STLMLC [id number] Co mmon 00:00:00 00:00:00 [facility] 2021-11-30 2021-11-30 OFFICE STLMLC STLMLC [id number] Co mmon 00:00:00 00:00:00 V[facility]IT [facility] ESTAB PT - CHI LEVEL 4 [facility] 2021-11-23 2021-11-23 (IN/ASP) STLMLC STLMLC [id number] C ommon 00:00:00 00:00:00 INJ ASP [facility] 2021-11-16 2021-11-16 (IN/ASP) STLMLC STLMLC [id number] C ommon 00:00:00 00:00:00 INJ ASP [facility] 2021-11-15 2021-11-15 (TEL) STLMLC STLMLC [id number] Co mmon 00:00:00 00:00:00 [facility] 2021-11-14 2021-11-14 OFFICE STLMLC STLMLC [id number] Co mmon 00:00:00 00:00:00 VISIT EST Spir it PT LEVEL 3 - [facility] 2021-10-27 2021-10-27 (IN/ASP) STLMLC STLMLC [id number] C ommon 00:00:00 00:00:00 INJ ASP [facility] 2021-10-20 2021-10-20 (IN/ASP) STLMLC STLMLC [id number] C ommon 00:00:00 00:00:00 INJ ASP [facility] 2021-10-14 2021-10-14 (TEL) STLMLC STLMLC [id number] Co mmon 00:00:00 00:00:00 [facility] 2021-10-13 2021-10-13 OFFICE STLMLC STLMLC [id number] Co mmon 00:00:00 00:00:00 VISIT EST Spir it PT LEVEL 3 [facility] 2021-08-24 2021-08-24 (WEB) STLMLC STLMLC [id number] Co mmon 00:00:00 00:00:00 [facility] 2021-06-02 2021-06-02 Outpatient STLMLC STLMLC [id number] Common 00:00:00 00:00:00 [facility] 2021-06-02 2021-06-02 Outpatient STLMLC STLMLC [id number] Common 00:00:00 00:00:00 [facility] 2021-03-03 2021-03-03 Outpatient STLMLC STLMLC [id number] Common 00:00:00 00:00:00 [facility] 2021-02-14 2021-02-14 Outpatient STLMLC STLMLC [id number] Common 00:00:00 00:00:00 [facility] Results This patient has no known results.
--- NOTE | 2022-11-07 10:53 | OP ---
Date of Procedure: 11/07/2022 Surgeon: Demond Tripathi MD Preoperative Diagnosis: Severe right degenerative joint disease of the knee. Postoperative Diagnosis: Severe right degenerative joint disease of the knee. Procedure: Right total knee arthroplasty using the [employer] system. Estimated Blood Loss: 100 cc. Complications: There were no complications. Indications For Operation: Ms. Peña is a 67-year-old female, who has undergone significant conser vative care for debilitating arthritic changes of her right knee. She is highly interested in total knee arthroplasty. The risks, benefits, and alternatives to different methods of treating this have been discussed with her and she has essentially exhausted conservative care, at least requested conse rvative care and specific risks of this procedure are discussed in detail. She says she understands everything as presented and wishes to proceed. Description Of Procedure: The patient obtained a block in the holding area, then was taken to the op erating room, and placed in the supine position. General anesthesia was obtained by staff. Followin g this, a well-padded tourniquet was placed on the superior right thigh. Right lower extremity was t hen prepped and draped in the usual fashion procedure. After this, the knee was then bent with Toño w rap and tourniquet was raised. A standard anterior incision was then taken down carefully through th e skin and soft tissue. There was a significant amount of adipose tissue. The great care was taken to avoid trauma to the extensor mechanism throughout the case as it is somewhat difficult to get expo sure; however, a standard medial parapatellar arthrotomy was then performed with liberation of approx imately 60 cc of rather normal-appearing synovial fluid. After this, the anterior cruciate ligament, the medial and lateral menisci are excised. Some fat pad was removed to allow for visualization and the knee was then flexed and the intramedullary alignment guide was placed without difficulty. A di stal cut was made, it measures slightly higher than a 62.5, but definitely higher than 62.5, so decis ion was made to go with a 65. This was then cut. Attention was then turned to the tibia and a tibia l cut was then made. The knee was then trialed. It appeared to be somewhat tight in flexion; howeve r, not tight in extension. There was consideration of perhaps advancing the femur more anteriorly an d decreasing the posterior aspect to a 62.5 without causing a notch, but decision was made to just barnes ve a little bit more slope to the tibia. After this was done, it appeared to be balanced in flexion and extension, has full flexion, appeared to be anatomically aligned. Attention was then turned to t he patella. It was then calipered and then cut. It calipered to a size 20. We leave 13 placing a s lightly 1 mm increase as it did not to be thinner than 13. It was then trialed using the patellar tr ial and appears to glide appropriately. The trial implants were then removed and the femoral box was then cut in standard fashion. The bone surface was then prepped for cementation and cleaned and dri ed. All of the components with the exception of the final polyethylene were then cemented in place a nd held while the cement dried using size 10 trial polyethylene. After the cement had dried, the kne e was then brought through full range of motion, appears to be appropriately balanced. Decision made to proceed with a size 10 poly. The trial poly was then removed. The bone plug had previously been placed and the final poly was then placed with a locking bar. The patella again appears to glide ap propriately and appears to be well balanced. It is again irrigated and the extensor mechanism was cl osed using heavy Ethibond sutures followed by closure of the skin using Vicryl. It was then stapled. The patient was placed in a very well-padded sterile dressing and taken to recovery room in good co ndition. There were no complications. SE/MODL Voice ID: [id number] Report ID: [id number]
[2022-11-07] MEDS ORDERED: ACETAMINOPHEN 325 MG TABLET PO PRN (16:28)
--- NOTE | 2022-11-07 16:31 | P.CNS ---
Date of Consult: 11/07/22 Reason for Consult: Medical management. Requesting Physician: Demond Tripathi Chief Complaint: Right knee osteoarthritis History of Present Illness: Patient is a 67-year-old female with a past medical history significant for obesity, hypothyroidism who presents for a scheduled procedure--right knee arthroplasty with her orthopedic surgeon. Patient reported that she has been having worsening pain for the past 1 year. Patient reported that she attempted management with steroids and pain medications but knee pain abated for a short time and reoccurred. Patient reported that knee pain affected her ADL and mobility. Patient reported that she agreed with her surgeon to perform a right knee arthroplasty. Patient rated right knee pain before the procedure as 10\10 in severity and described pain as aching in quality. Patient denies any other signs or symptoms. Symptoms are aggravated or relieved by nothing. Patient decided to present to the hospital due to worsening symptoms. Allergies codeine Allergy (Verified 11/07/22 07:20) Acid Reflux Home Medications: Levothyroxine [Synthroid] 50 mcg PO DAILY 01/19/22 Cholecalciferol (Vitamin D3) [Vitamin D3] 1,000 unit PO DAILY 11/02/22 Multivitamin 1 each PO DAILY 11/02/22 Coulter-3/Dha/Epa/Fish Oil [Fish Oil 1,000 mg Softgel] 1 each PO DAILY 11/02/22 - Past Medical/Surgical History Diabetic: No -: Hypothyroid -: appendectomy/cholecystectomy -: Rotator cuff repair right - Family History Father Medical History: Hypertension - Social History Smoking Status: Former smoker Alcohol use: No CD- Drugs: No Caffeine use: Yes Place of Residence: Home Review of Systems General: Unremarkable Eyes: Unremarkable ENT: Unremarkable Respiratory: Unremarkable Cardiovascular: Unremarkable Gastrointestinal: Unremarkable Genitourinary: Unremarkable Musculoskeletal: Other (Right knee pain ) Integumentary: Unremarkable Neurological: Unremarkable Lymphatics: Unremarkable Physical Examination Temp Pulse Resp BP Pulse Ox 97.5 F 101 H 16 151/78 H 93 11/07/22 12:00 11/07/22 12:00 11/07/22 12:00 11/07/22 12:11/07/22 12:00 General: Alert, In no apparent distress, Oriented x3, Cooperative HEENT: Atraumatic, Normocephalic, PERRLA, Mucous membr. moist/pink, EOMI Neck: Supple, 2+ carotid pulse no bruit, JVD not distended, No Thyromegaly Respiratory: Clear to auscultation bilaterally, Diminished Cardiovascular: No edema, Normal pulses, Regular rate/rhythm Capillary refill: <2 Seconds Gastrointestinal: Normal bowel sounds, Soft and benign, No tenderness, No guarding Musculoskeletal: Tenderness Integumentary: No rashes, No breakdown, No significant lesion, Tenderness/swelling Neurological: Normal speech, Normal tone, Normal affect Lymphatics: No axilla or inguinal lymphadenopathy Conclusions/Impression: .--Right knee osteoarthritis. Status post right knee arthroplasty. Surgery on board. PT eval and treat. Patient on CPM machine. Will await further recommendation from surgeon. --Acute pain. We will manage pain with current pain medication regimen. --UTI POA. Continue antibiotics. Urine cultures pending. --Obesity. Likely secondary to excess calories intake. Patient counseled on weight reduction, diet and exercise therapy. --Hypothyroidism. Continue Synthroid. --DVT prophylaxis with SCDs. Continue chemical prophylaxis in a.m Physician Review: Patient Assessed, Agree with Above Assessment and Plan Critical Care: No
[2022-11-07] MEDS: CEFAZOLIN 1 GM in NA CHLORIDE 0.9% 50 ML IVPB SCH (17:52)
[2022-11-07] MEDS: DOCOSAHEXANOIC AC/EPA 1000 MG PO SCH (18:05)
[2022-11-07] MEDS: MULTIVITAMIN TAB PO SCH (18:05)
[2022-11-07] MEDS: VITAMIN D 1000 UNIT TAB PO SCH (18:05)
[2022-11-07 19:52] VITALS: BMI 39.4
[2022-11-08] MEDS: CEFAZOLIN 1 GM in NA CHLORIDE 0.9% 50 ML IVPB SCH ×2 (00:32→09:36)
[2022-11-08 05:48] LABS: Hematocrit 35.9 % (36.0-45.0); Lymphocytes % 9.9 % (15.3-44.8); MCV 91.3 fL (80-100); MPV 8.1 fL (7.6-11.3); RBC Red Blood Cell Count 3.94 M/uL (3.86-4.86)
[2022-11-08 05:59] LABS: Magnesium 2.1 mg/dL (1.6-2.4); Phosphorus 3.1 mg/dL (2.5-4.9)
[2022-11-08] MEDS ORDERED: ENOXAPARIN 30 MG/0.3 ML SQ SCH (06:00)
[2022-11-08 06:18] VITALS: TEMP 97.7
[2022-11-08] MEDS ORDERED: LEVOTHYROXINE SOD 0.05 MG TABLET PO SCH (06:30)
[2022-11-08] MEDS ORDERED: HOME MED 1 EA UNK (Multivitamin [Multivitamin] Tablet) PO SCH (09:00)
[2022-11-08] MEDS ORDERED: HOME MED 1 EA UNK (Omega-3/Dha/Epa/Fish Oil [Fish Oil 1,000 Mg Softgel] Capsule) PO SCH (09:00)
[2022-11-08] MEDS ORDERED: HOME MED 1 EA UNK (Cholecalciferol (Vitamin D3) [Vitamin D3] 1,000 UNIT Capsule) PO SCH (09:00)
[2022-11-08 09:24] VITALS: BP 125/58
[2022-11-08] MEDS: DOCOSAHEXANOIC AC/EPA 1000 MG PO SCH (09:35)
[2022-11-08] MEDS: VITAMIN D 1000 UNIT TAB PO SCH (09:35)
[2022-11-08] MEDS: MULTIVITAMIN TAB PO SCH (09:36)
[2022-11-08 10:08] VITALS: O2SAT 100
--- NOTE | 2022-11-09 23:40 | P.PN ---
Date of Service: 11/08/22 Subjective: no acute events overnight improving ambulating with PT pain tolerable voiding without issue, +flatus ROS: A complete review of systems was performed and is negative except as mentioned above Physical Exam: Gen: NAD, AOx3 CV: regular rate & rhythm, no edema Pulm: non-labored respirations, clear bilaterally Abd: soft, non-tender, non-distended MSK: R knee with dressing in place, shakir bandage Neuro: sensation intact distally vitals reviewed Problem List R knee osteoarthritis, now s/p R knee arthroplasty Hypothyroidism doing well post-operatively walking with PT pain tolerable vitals WNL / stable ok to discharge once ready per Ortho home health / PT Code: full Dispo: home, anticipate today Time Spent Managing Pts Care (In Minutes): 25
== END 2022-11-08 11:22 | disposition home health service (06) ==
LOC: OR 05:39 → 2ND 10:35
PROVIDERS: ADMIT Orthopaedic Surgery; ATTEND Orthopaedic Surgery
PROC: 0SRC069 Replacement of Right Knee Joint with Oxidized Zirconium on Polyethylene Synthetic Substitute, Cemented, Open Approach (ICD-10-PCS; principal; 2022-11-07 07:00)
DX: M17.11 Unilateral primary osteoarthritis, right knee (principal); E03.9 Hypothyroidism, unspecified; E66.9 Obesity, unspecified; Z88.6 Allergy status to analgesic agent; Z68.39 Body mass index [BMI] 39.0-39.9, adult; Z20.822 Contact with and (suspected) exposure to COVID-19
CPT/HCPCS: 93005; 87088; 85025 ×2; 81001; 87086; 80048; 36415 ×2; 86900; 83735; 86850; 84100; 85610; 86901; 88304; 88311; 85730; 80053; 71046; 97110 ×2; 97116 ×2; 97139; 97161; 97530 ×3; 94010; 87811; 27447; C1776 ×2; J2704; J1100; J2001 ×2; J1650; J2250; J3010 ×2; J1170; J7120 ×2; J2405; J0690 ×3; 88305